=== PATIENT | female | born 1955 | race African-American/Black ===

== ENCOUNTER 2021-03-02 08:35 | Inpatient (IN) | payer MEDICAID, MEDICARE ==
[~2021-03-02] VITALS: Ht 165.1 cm; Wt 40.8 kg
[2021-03-02 09:46] LABS: CHLORIDE 106 mEq/L (98-107)
[2021-03-02 09:48] LABS: PROTHROMBIN TIME 11.2 sec (9.6-11.0)
[2021-03-02 09:51] LABS: BASOPHILS % 0.7 % (0.0-2.0); EOSINOPHILS % 0.2 % (0.0-5.0); HEMATOCRIT. 33.7 % (36.0-48.0); HEMOGLOBIN. 11.2 g/dL (12.0-16.0); LYMPHOCYTES % 34.8 % (20.0-50.0); MEAN CORPUSCULAR HEMOGLOBIN 33.7 pg (28.0-32.0); MEAN CORPUSCULAR VOLUME 101.1 fL (81.0-99.0); MEAN PLATELET VOLUME 9.3 fl (7.4-10.4); MONOCYTES % 10.7 % (2.0-8.0); NEUTROPHILS % 53.6 % (40.0-76.0); PLATELET 196 x1000/uL (130-400); RED BLOOD CELL COUNT 3.34 mill/uL (4.2-5.4); RED CELL DISTRIBUTION WIDTH 13.5 % (11.6-14.6)
[2021-03-02 23:24] VITALS: BP 126/68
[2021-03-02 23:42] VITALS: BP 118/60
[2021-03-03 04:22] VITALS: BP 134/77
[2021-03-03] MEDS ORDERED: DEXTROSE 5% WATER 1,000 ML IV SCH (04:30)
[2021-03-03 08:00] VITALS: BP 122/95
[2021-03-03] MEDS ORDERED: LIDOCAINE HCL 1% 20ML VIAL (Pyxis) INJ ONE (10:19)
[2021-03-03] MEDS ORDERED: IOHEXOL-300 50 ML BOTTLE IV ONE (10:28)
[2021-03-03 12:00] VITALS: BP 116/66
[2021-03-03 16:00] VITALS: BP 101/53
[2021-03-03 20:00] VITALS: BP 105/62
[2021-03-03] MEDS: DEXT 5%/0.45% NACL 500ML 500 ML IV SCH (21:59)
[2021-03-03] MEDS: LACTULOSE 20G/30ML UDC GT SCH (22:00)
[2021-03-04] VITALS: BP 102/51
[2021-03-04 04:00] VITALS: BP 121/46
[2021-03-04] MEDS: DEXT 5%/0.45% NACL 500ML 500 ML IV SCH ×2 (05:51→13:02)
[2021-03-04] MEDS: LACTULOSE 20G/30ML UDC GT SCH ×2 (05:51→17:28)
[2021-03-04 08:00] VITALS: BP 118/61
[2021-03-04 12:00] VITALS: BP 121/56
[2021-03-04 13:16] LABS: CHLORIDE 107 mEq/L (98-107)
[2021-03-04 13:18] LABS: BASOPHILS % 0.5 % (0.0-2.0); EOSINOPHILS % 0.8 % (0.0-5.0); HEMATOCRIT. 34.4 % (36.0-48.0); HEMOGLOBIN. 11.5 g/dL (12.0-16.0); MEAN CORPUSCULAR HEMOGLOBIN 34.3 pg (28.0-32.0); MEAN CORPUSCULAR VOLUME 103.1 fL (81.0-99.0); MEAN PLATELET VOLUME 9.2 fl (7.4-10.4); MONOCYTES % 9.8 % (2.0-8.0); NEUTROPHILS % 58.9 % (40.0-76.0); PLATELET 161 x1000/uL (130-400); RED BLOOD CELL COUNT 3.34 mill/uL (4.2-5.4); RED CELL DISTRIBUTION WIDTH 12.9 % (11.6-14.6)
[2021-03-04 15:57] VITALS: BP 121/56
== END 2021-03-04 18:00 | DRG 394 ==
LOC: ER 08:35 → ENRESERV 20:38 → 6WST 22:41
PROVIDERS: ADMIT Internal Medicine; ATTEND Internal Medicine
PROC: 0D20XUZ Change Feeding Device in Upper Intestinal Tract, External Approach (ICD-10-PCS; principal; 2021-03-03)
DX: K94.23 Gastrostomy malfunction (principal); E46 Unspecified protein-calorie malnutrition; I69.351 Hemiplegia and hemiparesis following cerebral infarction affecting right dominant side; I42.9 Cardiomyopathy, unspecified; Z68.1 Body mass index [BMI] 19.9 or less, adult; D64.9 Anemia, unspecified; J44.9 Chronic obstructive pulmonary disease, unspecified; R62.7 Adult failure to thrive; K59.00 Constipation, unspecified; E11.9 Type 2 diabetes mellitus without complications; Z20.822 Contact with and (suspected) exposure to COVID-19; F03.90 Unspecified dementia, unspecified severity, without behavioral disturbance, psychotic disturbance, mood disturbance, and anxiety; I10 Essential (primary) hypertension; I25.10 Atherosclerotic heart disease of native coronary artery without angina pectoris
CPT/HCPCS: 36415; 49450; 71045; 74018; 80048; 80053; 83036; 83735; 84443; 85025; 87426; 93005; 99285; C1725; C1769; J3490; Q9967

== ENCOUNTER 2021-04-14 11:12 | Inpatient (IN) | payer MEDICARE, OTHER ==
[~2021-04-14] VITALS: Ht 167.6 cm; Wt 58.7 kg
[2021-04-14] MEDS ORDERED: SODIUM CHLORIDE 0.9% 1000ML BAG (SEPSIS BOLUS) IV ONE (11:30)
[2021-04-14] MEDS ORDERED: VANCOMYCIN 1 G PREMIX 200 ML IV ONE (11:30)
[2021-04-14] MEDS ORDERED: MEROPENEM 1,000 MG in SODIUM CHLORIDE 0.9% 100 ML IV ONE (11:30)
[2021-04-14] MEDS ORDERED: NOREPINEPHRINE 8MG/250ML PMX 250 ML IV ONE ×2 (11:45→12:30)
[2021-04-14 12:12] LABS: BG BASE EXCESS -1.5 mmol/L (-2.0-2.0); BG CARBOXYHEMOGLOBIN 0.3 % (0.5-1.5); BG HCO3 ACT 20.7 mmol/L (22.0-26.0); BG OXYHEMOGLOBIN 86.7 % (94.0-97.0); BG PCO2 28.5 mmHg (35.0-45.0); BG PH 7.479 (7.350-7.450); BG PO2 51.9 mmHg (75.0-100.0); BG SAMPLE SITE LEFT RADIAL; BG TOTAL HEMOGLOBIN 14.3 g/dL (12.0-18.0); BG VENT MODE MASK - NRB
[2021-04-14 12:22] LABS: HEMATOCRIT. 46.3 % (36.0-48.0); HEMOGLOBIN. 14.1 g/dL (12.0-16.0); MEAN CORPUSCULAR VOLUME 111.8 fL (81.0-99.0); MEAN PLATELET VOLUME 11.1 fl (7.4-10.4); PLATELET 172 x1000/uL (130-400); RED BLOOD CELL COUNT 4.14 mill/uL (4.2-5.4); RED CELL DISTRIBUTION WIDTH 16.1 % (11.6-14.6)
[2021-04-14] MEDS ORDERED: ACETAMINOPHEN 650MG SUPP PR ONE (12:30)
[2021-04-14 12:55] LABS: PLATELET ESTIMATE NORMAL
[2021-04-14] MEDS ORDERED: MIDAZOLAM 100MG/100ML PMX 100 ML IV STA (12:58)
[2021-04-14] MEDS ORDERED: SUCCINYLCHOLINE CHLORIDE 200MG/10ML IV ONE (13:00)
[2021-04-14] MEDS ORDERED: ETOMIDATE 2MG/ML 10ML VIAL IV ONE (13:00)
[2021-04-14] MEDS ORDERED: PROPOFOL 10MG/ML 100ML 100 ML IV ONE (13:00)
[2021-04-14 13:35] LABS: CHLORIDE 121 mEq/L (98-107)
[2021-04-14] MEDS ORDERED: SODIUM CHLORIDE 0.45% 1,000 ML IV ONE (14:00)
[2021-04-14 14:38] LABS: CLARITY URINE CLEAR (CLEAR); COLOR URINE DARK YELLOW (YELLOW); KETONES URINE TRACE (NEGATIVE); LEUKOCYTE ESTERASE URINE 2+ (NEGATIVE); NITRITE URINE NEGATIVE (NEGATIVE); OCCULT BLOOD URINE NEGATIVE (NEGATIVE); PROTEIN URINE 3+ (NEGATIVE); SPECIFIC GRAVITY URINE 1.023 (1.005-1.030); UROBILINOGEN URINE 0.2 E.U./dL (0.2-1.0)
[2021-04-14 15:29] LABS: BG BASE EXCESS -1.2 mmol/L (-2.0-2.0); BG CARBOXYHEMOGLOBIN 0.3 % (0.5-1.5); BG DEOXYHEMOGLOBIN 3.1 % (0.0-5.0); BG FRACTION INSPIRED OXYGEN 100; BG HCO3 ACT 21.9 mmol/L (22.0-26.0); BG METHEMOGLOBIN 0.3 % (0.0-1.5); BG OXYGEN SATURATION 96.9 % (92.0-98.5); BG OXYHEMOGLOBIN 96.3 % (94.0-97.0); BG PCO2 31.8 mmHg (35.0-45.0); BG PH 7.455 (7.350-7.450); BG PO2 91.8 mmHg (75.0-100.0); BG SAMPLE SITE LEFT RADIAL; BG TOTAL HEMOGLOBIN 13.5 g/dL (12.0-18.0); BG VENT MODE VENT - AC/VC
[2021-04-14] MEDS ORDERED: SODIUM CHLORIDE 0.45% 1,000 ML IV SCH (23:15)
[2021-04-15] VITALS (43 sets, daily range): BP systolic 52–134; BP diastolic 19–92
[2021-04-15] MEDS: PHENYLEPHRINE 50 MG in DEXTROSE 5% WATER 250 ML IV PRN ×3 (01:01→22:04)
[2021-04-15 09:54] LABS: BG BASE EXCESS -6.4 mmol/L (-2.0-2.0); BG CARBOXYHEMOGLOBIN 0.2 % (0.5-1.5); BG DEOXYHEMOGLOBIN 1.8 % (0.0-5.0); BG FRACTION INSPIRED OXYGEN 100; BG HCO3 ACT 16.7 mmol/L (22.0-26.0); BG METHEMOGLOBIN 0.3 % (0.0-1.5); BG OXYGEN SATURATION 98.2 % (92.0-98.5); BG OXYHEMOGLOBIN 97.7 % (94.0-97.0); BG PCO2 26.2 mmHg (35.0-45.0); BG PH 7.423 (7.350-7.450); BG PO2 129.2 mmHg (75.0-100.0); BG SAMPLE SITE LEFT RADIAL; BG TOTAL HEMOGLOBIN 10.6 g/dL (12.0-18.0); BG TOTAL RESPIRATORY RATE 46 b/min; BG VENT MODE VENT - AC
[2021-04-15] MEDS ORDERED: DEXTROSE 5% WATER 1,000 ML IV SCH (10:00)
[2021-04-15 10:06] LABS: CHLORIDE 116 mEq/L (98-107)
[2021-04-15] MEDS ORDERED: ACETAMINOPHEN 650MG SUPP PR NR (11:45)
[2021-04-15 12:04] LABS: BASOPHILS % 0.5 % (0.0-2.0); EOSINOPHILS % 0.1 % (0.0-5.0); HEMATOCRIT. 29.4 % (36.0-48.0); LYMPHOCYTES % 13.3 % (20.0-50.0); MEAN CORPUSCULAR HEMOGLOBIN 33.2 pg (28.0-32.0); MEAN PLATELET VOLUME 11.7 fl (7.4-10.4); NEUTROPHILS % 83.1 % (40.0-76.0); RED BLOOD CELL COUNT 2.88 mill/uL (4.2-5.4); RED CELL DISTRIBUTION WIDTH 14.5 % (11.6-14.6)
[2021-04-15 12:12] LABS: PLATELET 75 x1000/uL (130-400)
[2021-04-15 12:13] LABS: HEMOGLOBIN. 9.6 g/dL (12.0-16.0)
[2021-04-15] MEDS ORDERED: ALBUMIN HUMAN 25GM/100ML (25%) IV ONE (14:15)
[2021-04-15] MEDS ORDERED: VANCOMYCIN 1 G PREMIX 200 ML IV SCH (14:15)
[2021-04-15] MEDS ORDERED: ACETAMINOPHEN 650MG SUPP PR PRN (14:45)
[2021-04-15] MEDS ORDERED: SODIUM CHLORIDE 0.9% 1000ML BAG (SEPSIS BOLUS) IV ONE (14:45)
[2021-04-15] MEDS ORDERED: SODIUM CHLORIDE 0.9% 500 ML IV NR (15:00)
[2021-04-15] MEDS: SODIUM BICARBONATE 100 MEQ in DEXTROSE 5% WATER 1,000 ML IV SCH (16:35)
[2021-04-15] MEDS: VASOPRESSIN 20 UNIT in SODIUM CHLORIDE 0.9% 99 ML IV PRN (16:35)
[2021-04-15] MEDS: DEXAMETHASONE 4MG/ML 1ML VIAL IV SCH (16:37)
[2021-04-15] MEDS ORDERED: VANCOMYCIN 750 MG PREMIX 150 ML IV SCH (17:00)
[2021-04-15] MEDS: NOREPINEPHRINE 8 MG in DEXT 5% WATER 242 ML IV PRN (17:08)
[2021-04-15] MEDS: IPRATROPIUM/ALBUTEROL 0.5-3(2.5)MG/3ML NEB HHN SCH (20:45)
[2021-04-15] MEDS: ACETYLCYSTEINE 100MG/ML 10% VIAL 4ML INH SCH (22:00)
[2021-04-16] VITALS (56 sets, daily range): BP systolic 31–158; BP diastolic 14–78
[2021-04-16] MEDS ORDERED: ALBUMIN HUMAN 25GM/100ML (25%) IV NR
[2021-04-16] MEDS: VASOPRESSIN 20 UNIT in SODIUM CHLORIDE 0.9% 99 ML IV PRN ×3 (00:09→17:09)
[2021-04-16] MEDS: IPRATROPIUM/ALBUTEROL 0.5-3(2.5)MG/3ML NEB HHN SCH ×5 (00:44→16:49)
[2021-04-16] MEDS: PHENYLEPHRINE 50 MG in DEXTROSE 5% WATER 250 ML IV PRN ×4 (02:58→17:09)
[2021-04-16] MEDS: SODIUM BICARBONATE 100 MEQ in DEXTROSE 5% WATER 1,000 ML IV SCH (05:27)
[2021-04-16 06:23] LABS: HEMATOCRIT. 28.7 % (36.0-48.0); HEMOGLOBIN. 9.7 g/dL (12.0-16.0); MEAN CORPUSCULAR HEMOGLOBIN 34.7 pg (28.0-32.0); MEAN CORPUSCULAR VOLUME 102.8 fL (81.0-99.0); MEAN PLATELET VOLUME 12.2 fl (7.4-10.4); RED BLOOD CELL COUNT 2.79 mill/uL (4.2-5.4); RED CELL DISTRIBUTION WIDTH 14.7 % (11.6-14.6)
[2021-04-16] MEDS: NOREPINEPHRINE 8 MG in DEXT 5% WATER 242 ML IV PRN ×2 (06:33→13:19)
[2021-04-16 07:02] LABS: PLATELET 49 x1000/uL (130-400)
[2021-04-16] MEDS ORDERED: SODIUM CHLORIDE 0.9% 1000ML BAG (SEPSIS BOLUS) IV ONE (07:45)
[2021-04-16 07:47] LABS: NUCLEATED RED BLOOD CELLS 3 /100 WBC; PLATELET ESTIMATE DECREASED
[2021-04-16] MEDS ORDERED: SODIUM CHLORIDE 0.9% 300 ML IV SCH (08:00)
[2021-04-16] MEDS: DEXAMETHASONE 4MG/ML 1ML VIAL IV SCH ×2 (08:00→17:09)
[2021-04-16] MEDS ORDERED: SODIUM BICARBONATE 8.4% 1 MEQ/ML 50ML SYR IV SCH (08:30)
[2021-04-16] MEDS ORDERED: PANTOPRAZOLE SODIUM 40 MG/VIAL IV SCH (09:00)
[2021-04-16] MEDS: ACETYLCYSTEINE 100MG/ML 10% VIAL 4ML INH SCH ×2 (09:06→16:49)
[2021-04-16] MEDS ORDERED: SODIUM BICARBONATE 150 MEQ in DEXTROSE 5% WATER 1,000 ML IV SCH (10:00)
[2021-04-16] MEDS ORDERED: ALBUMIN HUMAN 25GM/100ML (25%) IV SCH (10:00)
[2021-04-16 11:03] LABS: BG CARBOXYHEMOGLOBIN 0.1 % (0.5-1.5); BG DEOXYHEMOGLOBIN 67.9 % (0.0-5.0); BG FRACTION INSPIRED OXYGEN 100; BG METHEMOGLOBIN 0.4 % (0.0-1.5); BG OXYGEN SATURATION 31.8 % (92.0-98.5); BG OXYHEMOGLOBIN 31.6 % (94.0-97.0); BG PCO2 65.2 mmHg (35.0-45.0); BG PO2 < 30.3 mmHg (75.0-100.0); BG SAMPLE SITE RIGHT BRACHIAL; BG TOTAL HEMOGLOBIN 8.5 g/dL (12.0-18.0); BG VENT MODE VENT - AC
== END 2021-04-16 21:52 | DRG 871 ==
LOC: ER 11:18 → MICUSO 13:40 → EDBEDREQTM 13:42 → EDBEDREQ 13:42 → MICUSO 04-15 15:53
PROVIDERS: ADMIT Internal Medicine; ATTEND Internal Medicine
PROC: 02HV33Z Insertion of Infusion Device into Superior Vena Cava, Percutaneous Approach (ICD-10-PCS; principal; 2021-04-14)
PROC: B548ZZA Ultrasonography of Superior Vena Cava, Guidance (ICD-10-PCS; 2021-04-14)
PROC: 0BH18EZ Insertion of Endotracheal Airway into Trachea, Via Natural or Artificial Opening Endoscopic (ICD-10-PCS; 2021-04-14)
PROC: 5A1945Z Respiratory Ventilation, 24-96 Consecutive Hours (ICD-10-PCS; 2021-04-14)
DX: A41.89 Other specified sepsis (principal); R65.21 Severe sepsis with septic shock; I21.4 Non-ST elevation (NSTEMI) myocardial infarction; U07.1 COVID-19; J12.82 Pneumonia due to coronavirus disease 2019; E43 Unspecified severe protein-calorie malnutrition; J96.01 Acute respiratory failure with hypoxia; G93.41 Metabolic encephalopathy; N17.9 Acute kidney failure, unspecified; I69.351 Hemiplegia and hemiparesis following cerebral infarction affecting right dominant side; I42.8 Other cardiomyopathies; J44.0 Chronic obstructive pulmonary disease with (acute) lower respiratory infection; E87.0 Hyperosmolality and hypernatremia; I13.0 Hypertensive heart and chronic kidney disease with heart failure and stage 1 through stage 4 chronic kidney disease, or unspecified chronic kidney disease; N18.9 Chronic kidney disease, unspecified; F03.90 Unspecified dementia, unspecified severity, without behavioral disturbance, psychotic disturbance, mood disturbance, and anxiety; K59.00 Constipation, unspecified; E11.22 Type 2 diabetes mellitus with diabetic chronic kidney disease; L89.159 Pressure ulcer of sacral region, unspecified stage; I25.10 Atherosclerotic heart disease of native coronary artery without angina pectoris; R00.1 Bradycardia, unspecified; F17.200 Nicotine dependence, unspecified, uncomplicated; Z66 Do not resuscitate; D64.9 Anemia, unspecified; R13.10 Dysphagia, unspecified; E86.1 Hypovolemia; E86.0 Dehydration; I50.9 Heart failure, unspecified; D69.6 Thrombocytopenia, unspecified; E87.6 Hypokalemia; E83.42 Hypomagnesemia; I46.9 Cardiac arrest, cause unspecified; Z93.1 Gastrostomy status; Z68.20 Body mass index [BMI] 20.0-20.9, adult; Z95.0 Presence of cardiac pacemaker; Z74.01 Bed confinement status; Z79.4 Long term (current) use of insulin
CPT/HCPCS: 31500; 36415; 36600; 71045; 76770; 76937; 80048; 80053; 80076; 81003; 82375; 82805; 82962; 83605; 83880; 84145; 84484; 85025; 87070; 87426; 93005; 94002; 94003; 94640; 99291; C1725; C9113; J1100; J2185; J2250; J2370; J3370; J3490; J7030; J7040; J7050; J7060; J7070; J7608; P9047